=== PATIENT | female | born 1980 | race Caucasian/White ===

== ENCOUNTER 2017-10-10 13:00 | Emergency (ER) | payer OTHER ==
[2017-10-10 13:20] VITALS: BMI 35.8
--- NOTE | 2017-10-10 13:42 | ED.ABDFE ---
HPI - Time seen Time seen: 13:35 - PCP Primary Care Physician: CARRIE EDWARD - HPI Comment HPI Comment: PATIENT HAVE CHRONIC PAIN ON MED. INCREASE LUQ ABD PAIN IS DIFFERENT. HER HOME PAIN MED IS NOT KEEPING PAIN UNDER CONTROL. NO FEVER. NAUSEA PRESENT. DENIES DISURIA. MULTIPLE ABDOMINAL SURGERY IN THE PAST. - Complaint Chief Complaint Doctors Comments: LUQ ABDOMINAL PAIN TIMES ONE WEEK. Chief Complaint:: LEFT UPPER QUAD PAIN ONSET X1WEEK WITH WORSENING LAST NIGHT. CRYING IN TRIAGE. HAD A HERNIA REPAIN LAST DECEMBER WITH REMOVAL OF THE MESH IN APRIL OF LAST YEAR - Nurses notes reviewed Nurses Notes Review: Yes - Source History Provided: Patient - Mode of arrival Mode of Arrival: Ambulatory - Timing Onset of Chief Complaint: 10/03/17 Came on: Suddenly - Duration Duration: Constant Duration: Days - Location Location: RUQ - Severity Severity: Moderate - Quality Quality: Cramping, Sharp - Context Onset: Gradually History of: Abdominal surgery - Modifying Worsening Factors: Nothing Improving Factors: Nothing - Associated signs and symptoms Associated Signs and Symptoms: Nausea PMH - PMH Past Medical History: Yes Past Medical History: Anxiety, GERD Past Medical History Comment: KINDEY STONES Past Surgical History: Yes Surgical History: Appendectomy, Cholecystectomy, Hysterectomy Past Surgical History Comment: HERNIA - Family History History of Family Medical Conditions: Yes Family Medical History: Diabetes Mellitus, Cancer, Hypertension - Social History Does any household member use tobacco: No Alcohol Use: None Do you use any recreational Drugs:: No Lives With: Family Lives Where: Home - infectious screening In the last 2 months have you had wt loss of >10#?: NO Have you had fever, night sweats or hemotysis?: No Have you traveled outside the country in the last 6 months?: No Isolation: Standard ROS - Review of Systems Constitutional: No Symptoms Reported Eyes: No Symptoms Reported. negative: Eye Pain, Discharge ENTM: No Symptoms Reported. negative: Ear Pain, Nose Discharge, Nose Congestion , Throat Pain Respiratoy: No Symptoms Reported. negative: Productive Cough, Short of Breath, Wheezing, Hemoptysis Cardiovascular: No Symptoms Reported Gastrointestinal/Abdominal: Abdominal Pain, Nausea, Vomiting. negative: Constipation, Diarrhea Genitourinary: Pain. negative: Dysuria, Frequency, Hematuria Neurological: No Symptoms Reported Musculoskeletal: No Symptoms Reported Integumentary: No Symptoms Reported Hematologic/Lymphatic: No Symptoms Reported Endocrine: No Symptoms Reported All Other Systems: Reviewed and Negative PE - Vital Signs Vitals: Temperature 97.8 F Pulse Rate [Left Brachial] 89 Pulse Rate 108 Respiratory Rate 18 Blood Pressure [Right Arm] 136/86 Blood Pressure 159/101 O2 Sat by Pulse Oximetry 99 - General Limitations: No Limitations General Appearance: Alert - Head Head Exam: Normal Inspection - Eyes Eye exam: Normal Appearance - ENT ENT Exam: Normal External Ear Exam - Neck Neck Exam: Trachea Midline - Chest Chest Inspection: Symmetric Chest Wall Rise - Respiratory Respiratory Exam: Normal Lung Sounds Bilat Respiratory Exam: Bilateral Clear to Auscultation - Cardiovascular Cardiovascular Exam: Regular Rate, Normal Rhythm, Normal Heart Sounds - Abdominal Exam Abdominal Exam: Normal Bowel Sounds, Soft, Tenderness Abdominal Tenderness: Diffuse, Moderate - Rectal Rectal Exam: Deferred - Back Back Exam: Paraspinal Tenderness - Extremeties Extremities Exam: Normal Inspection - External Exam: Female: Deferred : Speculum Exam (Female): Deferred : Bimanual Exam (female): Deferred - Neurologic Neurological Exam: Alert, Oriented X3 - Psychiatric Psychiatric Exam: Anxious - Skin Skin Exam: Normal Color MDM - Differential Diagnosis Differential Diagnosis- Considerations may include:: Bowel Obstruction, Diverticular disease, Gastritus/PUD, Urinary tract infection, Urolithiasis, Other (comments) (ADHESIONS, CHRONIC PAIN) Course - Treatment Treatment: SEE ORDERS. IV POTASIUM AND IV PAIN AND NAUSEA MED IN ED. - Reevaluation 1st: Improved (PAIN IMPROVING.) - Consultation Consultation Comments: DISCUSS PATIENT WITH DR. WILSON. WILL FOLLOW IN AM WITH PATIENT THROUGH [facility]. - Education/Counseling Education/Counseling: Patient, Family, Education Educated On: Diagnosis, Needs for Follow Up ROR - Labs Reviewed Laboratory Results Reviewed?: Yes Result Diagrams: 10/10/17 13:54 10/10/17 13:54 Laboratory: WBC 13.2 X10^3/uL (3.6-10.0) H 10/10/17 13:54 RBC 5.41 X10^6/uL (3.5-5.4) H 10/10/17 13:54 Hgb 16.2 g/dL (12.0-16.0) H 10/10/17 13:54 Hct 46.9 % (36.0-47.0) 10/10/17 13:54 MCV 86.7 fL (80.0-100.0) 04/24/18 13:54 MCH 29.9 pg (27.0-34.0) 10/10/17 13:54 MCHC 34.4 g/dL (33.0-35.0) 10/10/17 13:54 RDW 14.6 % (11.6-16.5) 10/10/17 13:54 Plt Count 352 X10^3/uL (150.0-450.0) 10/10/17 13:54 MPV 8.4 fL (7.4-11.0) 10/10/17 13:54 Neut % (Auto) 71.9 % (42.0-75.0) 10/10/17 13:54 Lymph % (Auto) 21.1 % (21.0-51.0) 10/10/17 13:54 [place] % (Auto) 4.4 % (0.0-13.0) 10/10/17 13:54 Eos % (Auto) 1.9 % (0.9-2.9) 10/10/17 13:54 Baso % (Auto) 0.7 % (0.2-1.0) 10/10/17 13:54 Neut # (Auto) 9.5 x10^3/uL (2.2-4.8) H 10/10/17 13:54 Lymph # (Auto) 2.8 X10^3/uL (1.3-2.9) 10/10/17 13:54 [place] # (Auto) 0.6 x10^3/uL (0.3-0.8) 10/10/17 13:54 Eos # (Auto) 0.2 x10^3/uL (0.0-0.2) 10/10/17 13:54 Baso # (Auto) 0.1 X10^3/uL (0.0-0.1) 10/10/17 13:54 Absolute Nucleated RBC 0.0 /100WBC 10/10/17 13:54 Sodium 138 mmol/L (136-145) 10/10/17 13:54 Corrected Sodium 139 mmol/L (136-145) 10/10/17 13:54 Potassium 2.9 mmol/L (3.5-5.1) L* 10/10/17 13:54 Chloride 95 mmol/L (98-107) L 10/10/17 13:54 Carbon Dioxide 34.9 mmol/L (21-32) H 10/10/17 13:54 BUN 12 mg/dL (7-18) 10/10/17 13:54 Creatinine 0.79 mg/dL (0.55-1.02) 10/10/17 13:54 Est GFR (MDRD) Af Amer > 60 (>60) 10/10/17 13:54 Est GFR (MDRD) Non-Af > 60 (>60) 10/10/17 13:54 Glucose 126 mg/dL (65-99) H 10/10/17 13:54 Calcium 9.5 mg/dL (8.5-10.1) 10/10/17 13:54 Corrected Calcium TNP 10/10/17 13:54 Total Bilirubin 0.60 mg/dL (0.2-1.0) 10/10/17 13:54 AST 20 Units/L (15-37) 10/10/17 13:54 ALT 25 Units/L (12-78) 10/10/17 13:54 Alkaline Phosphatase 90 Units/L (46-116) 10/10/17 13:54 Total Protein 8.8 g/dL (6.4-8.2) H 10/10/17 13:54 Albumin 3.6 g/dL (3.4-5.0) 10/10/17 13:54 Globulin 5.2 g/dL (2.5-4.5) H 10/10/17 13:54 Albumin/Globulin Ratio 0.7 Ratio (1.1-2.1) L 10/10/17 13:54 Amylase 67 Units/L (25-115) 10/10/17 13:54 Lipase 381 Units/L (73-393) 10/10/17 13:54 Specimen Type Clean catch urine 10/10/17 14:08 Urine Color Yellow (YELLOW) 10/10/17 14:08 Urine Appearance Hazy (CLEAR) 10/10/17 14:08 Urine pH 7.0 (5.0 - 8.0) 10/10/17 14:08 Ur Specific [place] 1.010 (1.000-1.030) 10/10/17 14:08 Urine Protein 2+ (NEGATIVE) 10/10/17 14:08 Urine Glucose (UA) Negative (NEGATIVE) 10/10/17 14:08 Urine Ketones Negative (NEGATIVE) 10/10/17 14:08 Urine Occult Blood 4+ (NEGATIVE) 10/10/17 14:08 Urine Nitrite Negative (NEGATIVE) 10/10/17 14:08 Urine Bilirubin Negative (NEGATIVE) 10/10/17 14:08 Urine Urobilinogen Normal (NORMAL) 10/10/17 14:08 Ur Leukocyte Esterase 1+ (NEGATIVE) 10/10/17 14:08 Urine RBC 5-10 /HPF (NONE SEEN) 10/10/17 14:08 Urine WBC 3-5 /HPF (NONE SEEN) 10/10/17 14:08 Ur Squamous Epith Cells Numerous /HPF (NEGATIVE) 10/10/17 14:08 Urine Bacteria Trace /HPF (NEGATIVE) 10/10/17 14:08 Ur Culture Indicated? No/not indicated 10/10/17 14:08 - XRAY XRAY Interpreted by: Radiologist XRAY Findings: REPORT DISCUSS WITH PATIENT AND HER . - Diagnosis Discharge Problem: Abdominal pain Qualifiers: Abdominal location: left upper quadrant Qualified Code(s): R10.12 - Left upper quadrant pain - Discharge Plan Disposition: 01 HOME, SELF-CARE Condition: Stable - Follow ups/Referrals Follow ups/Referrals: IDALMIS EDWARD [Primary Care Provider] - 10/11/17 - Instructions Instructions: Abdominal Pain, Adult, [id number] Additional Instructions: RETURN TO ED IF WORSE.
[2017-10-10] MEDS ORDERED: ZOFRAN INJ 4 MG VIAL IVP ONE (13:45)
[2017-10-10] MEDS ORDERED: DEMEROL INJ IVP ONE (13:45)
[2017-10-10] MEDS ORDERED: DEMEROL INJ ONE (13:51)
[2017-10-10] MEDS ORDERED: ZOFRAN INJ 4 MG VIAL ONE (13:51)
[2017-10-10 14:07] LABS: BASOPHILS # (AUTO) 0.1 X10^3/uL (0.0-0.1); BASOPHILS % (AUTO) 0.7 % (0.2-1.0); EOSINOPHILS # (AUTO) 0.2 x10^3/uL (0.0-0.2); EOSINOPHILS % (AUTO) 1.9 % (0.9-2.9); HEMATOCRIT 46.9 % (36.0-47.0); HEMOGLOBIN 16.2 g/dL (12.0-16.0); LYMPHOCYTES # (AUTO) 2.8 X10^3/uL (1.3-2.9); LYMPHOCYTES % (AUTO) 21.1 % (21.0-51.0); MEAN CORPUSCULAR HEMOGLOBIN 29.9 pg (27.0-34.0); MEAN CORPUSCULAR HGB CONC 34.4 g/dL (33.0-35.0); MEAN CORPUSCULAR VOLUME 86.7 fL (80.0-100.0); MEAN PLATELET VOLUME 8.4 fL (7.4-11.0); MONOCYTES # (AUTO) 0.6 x10^3/uL (0.3-0.8); MONOCYTES % (AUTO) 4.4 % (0.0-13.0); NEUTROPHILS # (AUTO) 9.5 x10^3/uL (2.2-4.8); NEUTROPHILS % (AUTO) 71.9 % (42.0-75.0); PLATELET COUNT 352 X10^3/uL (150.0-450.0); RED BLOOD COUNT 5.41 X10^6/uL (3.5-5.4); RED CELL DISTRIBUTION WIDTH 14.6 % (11.6-16.5); WHITE BLOOD COUNT 13.2 X10^3/uL (3.6-10.0)
[2017-10-10] MEDS ORDERED: PHENERGAN INJ 25 MG ONE (14:13)
[2017-10-10 14:14] LABS: BLOOD UREA NITROGEN 12 mg/dL (7-18); CALCIUM 9.5 mg/dL (8.5-10.1); CARBON DIOXIDE 34.9 mmol/L (21-32); CHLORIDE 95 mmol/L (98-107); COR NA(FOR HYPERGLY) 139 mmol/L (136-145); CREATININE 0.79 mg/dL (0.55-1.02); SODIUM 138 mmol/L (136-145); eGFR BLACK RACES > 60 (>60); eGFR NON BLACK RACES > 60 (>60)
[2017-10-10] MEDS ORDERED: PHENERGAN INJ 25 MG IV ONE (14:14)
[2017-10-10 14:19] LABS: ALANINE AMINOTRANSFERASE 25 Units/L (12-78); ALBUMIN 3.6 g/dL (3.4-5.0); ALKALINE PHOSPHATASE 90 Units/L (46-116); AMYLASE 67 Units/L (25-115); ASPARTATE AMINO TRANSFERASE 20 Units/L (15-37); LIPASE 381 Units/L (73-393); TOTAL PROTEIN 8.8 g/dL (6.4-8.2)
[2017-10-10 14:24] LABS: BILIRUBIN,URINE NEGATIVE (NEGATIVE); BLOOD/HEMOGLOBIN,URINE 4+ (NEGATIVE); GLUCOSE, URINE NEGATIVE (NEGATIVE); KETONES,URINE NEGATIVE (NEGATIVE); LEUKOCYTE ESTERASE ,URINE 1+ (NEGATIVE); NITRITES,URINE NEGATIVE (NEGATIVE); PROTEIN,URINE 2+ (NEGATIVE); UROBILINOGEN,URINE NORMAL (NORMAL)
[2017-10-10] MEDS ORDERED: NS + KCL 20 MEQ/L 1,000 ML IV ONE ×2 (14:26→14:27)
[2017-10-10 14:42] LABS: APPEARANCE,URINE HAZY (CLEAR); COLOR,URINE YELLOW (YELLOW)
[2017-10-10 14:43] LABS: BACTERIA,URINE TRACE /HPF (NEGATIVE); SQUAMOUS EPITHELIAL CELL,UR NUMEROUS /HPF (NEGATIVE)
[2017-10-10] MEDS ORDERED: DILAUDID INJ ONE ×2 (15:19→18:09)
[2017-10-10] MEDS ORDERED: DILAUDID INJ IVP ONE ×2 (15:26→18:08)
[2017-10-10] MEDS ORDERED: NS 100 ML IV 100 ML IV ONE (16:56)
--- NOTE | 2017-10-10 17:44 | CT ---
HISTORY: Abdominal pain, left upper quadrant pain Study: CT abdomen and pelvis with contrast Comparison: None Technique: Multiple axial images of the abdomen and pelvis were obtained with IV contrast. Oral contrast was ad ministered. Dose reduction techniques including Automated Exposure Control (AEC) and adjustment of mA and kV were utilized. Findings: The visualized portions of the lung bases are clear. The liver, spleen, pancreas, kidneys, and adren al glands are unremarkable. The gallbladder is removed. There is a 5 mm nonobstructing right renal st one. The ureters are normal. No free intraperitoneal air. No evidence of intestinal obstruction or inflammation. The appendix is r emoved. No free fluid is identified. There are postsurgical changes of the small bowel noted in the m id abdomen suggesting previous resection. There are postsurgical changes in the ventral abdomen suggesting previous hernia repair. The vascular structures are within normal limits for age. No pathologically enlarged lymph nodes are identified. The uterus is removed. The urinary bladder is unremarkable. IMPRESSION: 1. Postsurgical changes as described without acute abnormality. 2. Right nephrolithiasis. Reported By:
[2017-10-10 18:30] VITALS: BP 136/86
== END 2017-10-10 18:30 | disposition home or self-care (01) ==
LOC: ER 13:24
DX: N20.0 Calculus of kidney (principal); Z98.890 Other specified postprocedural states
CPT/HCPCS: 36415; 74177; 80053; 81001; 82150; 83690; 85025; 96365; 96367; 96374; 96375; 99283; 99284; A4222; J1170; J2175; J2405; J2550